=== PATIENT | female | born 1990 | race African-American/Black ===

== ENCOUNTER 2016-09-25 22:19 | Emergency (ER) | payer SELFPAY ==
[~2016-09-25] VITALS: Ht 154.9 cm; Wt 70.5 kg
[2016-09-25 22:23] VITALS: BP 131/69; PULSE 82; RESP 14; TEMP 98.6; O2SAT 97
--- NOTE | 2016-09-26 14:42 | EKG ---
Date Performed: 09/25/2016 Time Performed: 23:58:15 PTAGE: 26 years EKG: Sinus rhythm Non-specific T wave inversions anteriorly, Clinical correlation is recommended PREVIOUS TRACING : 05/20/2015 08.56 Since previous tracing, no significant change noted DOCTOR: Alxe Garner Interpretating Date/Time 09/26/2016 14:40:57
== END 2016-09-26 00:20 | disposition left against medical advice (07) ==
LOC: NED 22:19
DX: R07.9 Chest pain, unspecified (principal); Z53.21 Procedure and treatment not carried out due to patient leaving prior to being seen by health care provider
CPT/HCPCS: 93005; 99281

== ENCOUNTER 2016-09-30 09:54 | Emergency (ER) | payer MEDICAID, OTHER ==
[~2016-09-30] VITALS: Ht 154.9 cm; Wt 70.0 kg
[2016-09-30 09:56] VITALS: BP 117/64; PULSE 76; RESP 12; TEMP 97.8; O2SAT 100
--- NOTE | 2016-09-30 10:13 | PD ---
HPI Chief Complaint: Cold / Flu Symptoms Time Seen by Provider: 10:12 Travel History International Travel<30 days: No Contact w/Intl Traveler<30days: No Traveled to known affect area: No History of Present Illness HPI 26-year-old female presents to the ED for evaluation of 3 day history of nonproductive cough, clear rhinorrhea, body aches and sore throat. Patient denies headaches, fevers, chills, ear pain nausea or vomiting. She endorses rib pain with cough. She endorses sick contacts, states that her 1-year-old has a viral illness. She denies this years flu vaccine. Denies chronic medical problems, takes no daily medications, NKDA. PFSH Past Medical History Cardiovascular Problems: Yes (ENLARGED HEART) Diminished Hearing: No Immunizations Current: Yes ?: Not : 3 Para: 3 Miscarriage: 0 : 0 Social History Alcohol Use: Yes (OCC) Tobacco Use: No Substance Use: No Allergies-Medications (Allergen,Severity, Reaction): Coded Allergies: No Known Allergies (Verified , 09/30/16) Reported Meds & Prescriptions Reported Meds & Active Scripts Active Tessalon Perles (Benzonatate) 100 Mg Cap 100 Mg PO TID PRN Review of Systems Except as stated in HPI: all other systems reviewed are Neg Physical Exam Narrative GENERAL: Well-nourished, well-developed black female in no acute distress. SKIN: Warm and dry. HEAD: Normocephalic. Atraumatic. EYES: No scleral icterus. No injection or drainage. PERRLA. EOMI. ENT: Pearly coughlin tympanic membranes bilaterally. Nasal mucosa is moist. Oropharynx with mild posterior erythema. Right-sided tonsil 2+. No edema or exudate. Uvula midline. Airway patent. NECK: Supple, trachea midline. No JVD or lymphadenopathy. CARDIOVASCULAR: Regular rate and rhythm without murmurs, gallops, or rubs. No carotid bruits. 2+ DP and radial pulses bilaterally. RESPIRATORY: Breath sounds clear and equal bilaterally. No accessory muscle use. No tenderness to palpation of the precordium. GASTROINTESTINAL: Abdomen soft, non-tender, nondistended. + Bowel sounds MUSCULOSKELETAL: No cyanosis, or edema. Patient is ambulatory and moves the extremities spontaneously. BACK: Nontender without obvious deformity. No CVA tenderness. Data Data Last Documented VS Vital Signs Date Time Temp Pulse Resp B/P Pulse Ox O2 Delivery O2 Flow Rate FiO2 09/30/16 09:56 97.8 76 12 117/64 100 Room Air Orders Influenzae A/B Antigen (09/30/16 10:13) Group A Rapid Strep Screen (09/30/16 10:13) Strep Culture (Group A) (09/30/16 10:45) MDM Medical Decision Making Medical Screen Exam Complete: Yes Emergency Medical Condition: Yes Differential Diagnosis Viral syndrome versus pharyngitis versus bronchitis versus strep pharyngitis versus influenza versus other Narrative Course 26-year-old female presents to the ED for evaluation of 3 day history of nonproductive cough, clear rhinorrhea, body aches and sore throat. Patient denies headaches, fevers, chills, ear pain nausea or vomiting. She endorses rib pain with cough. She endorses sick contacts, states that her 1-year-old has a viral illness. She denies this years flu vaccine. Vitals reviewed. Physical exam reveals a nontoxic-appearing black female in no acute distress. Pearly coughlin tympanic membranes bilaterally. Oropharynx with mild posterior erythema. 1+ right tonsil. No exudates. Uvula midline. Airway patent. Chest clear to auscultation bilaterally. No tenderness to palpation of the precordium. Group A strep swab: Negative Influenza AB: Negative Versus viral syndrome. Patient was provided a short course of Tessalon Perles to soothe her cough. She is instructed to continue symptomatic treatment, follow-up with her primary care provider. She indicated understanding of instructions. She is amenable to plan of care. She is stable and discharged home. Diagnosis Primary Impression: Viral syndrome Additional Impression: Cough Referrals: Primary Care Physician Patient Instructions: General Instructions, Viral Syndrome (ED) Additional Instructions: Rest, hydrate. Take Tessalon Perles as directed, as needed for cough. Increase handwashing frequency in order to reduce spread of illness in the community. Follow up with your primary care provider this week Return to the ED for any urgent or emergent medical condition. Med/Other Pt SpecificInfo: Prescription(s) given Scripts Benzonatate (Tessalon Perles)100 Mg [id number] Mg PO TID PRN (COUGH) #10 CAP Ref 0 Prov:Marcela Esquivel DO 09/30/16 Disposition: 01 DISCHARGE HOME Condition: Stable Emilie Gomes Sep 30, 2016 10:12
[2016-09-30] MEDS ORDERED: BENZ100 PO (11:19)
== END 2016-09-30 11:30 | disposition home or self-care (01) ==
LOC: NEPB 09:54
DX: B34.9 Viral infection, unspecified (principal); R05 Cough; J02.9 Acute pharyngitis, unspecified; I51.7 Cardiomegaly
CPT/HCPCS: 87081; 87804; 87880; 99283

== ENCOUNTER 2017-04-05 12:59 | Emergency (ER) | payer MEDICAID, OTHER ==
[~2017-04-05 12:59] MED LIST: BENZ100 PO
--- NOTE | 2017-04-05 13:55 | PD ---
HPI Chief Complaint Leakage of fluid Date Seen: Apr 05, 2017 Time Seen: 13:45 Travel History International Travel<30 Days: No Contact w/Intl Traveler<30Days: No Known Affected Area: No History of Present Illness HPI 36-year-old at 15 weeks gestation presenting for gush of fluid occurring about 20 minutes prior to presentation. She denies any odor to the fluid, denies vaginal bleeding or contractions. Denies chest pain, shortness of breath , fever or chills, dysuria. No recent travel or sexual activity. No abdominal trauma. History Past Medical History Narrative Medical Diagnosed with cardiomyopathy 2008 Past Surgical History Surgical History: No Previous Surgery Family History Family History: Negative Social History Alcohol Use: No Tobacco Use: No Substance Abuse: No Allergies-Medications (Allergen,Severity, Reaction): Coded Allergies: No Known Allergies (Verified , 02/10/17) Home Meds Active Scripts Metronidazole 500 Mg [id number] Mg PO BID #14 TAB Ref 0 Prov:Antelmo Leon MD R1 04/05/17 Benzonatate (Tessalon Perles)100 Mg [id number] Mg PO TID PRN (COUGH) #10 CAP Ref 0 Prov:Marcela Esquivel DO 09/30/16 Review of Systems Except as stated in HPI: all other systems reviewed are Neg Physical Exam Narrative GENERAL: Well-nourished, well-developed patient. SKIN: Warm and dry. HEAD: Normocephalic and atraumatic. EYES: No scleral icterus. No injection or drainage. ENT: No nasal drainage noted. Mucous membranes pink. Airway patent. NECK: Supple, trachea midline. No JVD. CARDIOVASCULAR: Regular rate and rhythm without murmurs, gallops, or rubs. RESPIRATORY: Breath sounds equal bilaterally. No accessory muscle use. ABDOMEN/GI: Abdomen soft, non-tender, bowel sounds present, no rebound, no guarding GENITOURINARY: Speculum exam revealing normal external genitalia, closed cervix with copious amount of thin whitish vaginal discharge with fishy odor. No bleeding. FHT's: 155 EXTREMITIES: No cyanosis or edema. BACK: Nontender without obvious deformity. No CVA tenderness. NEUROLOGICAL: Awake and alert. Motor and sensory grossly within normal limits. Normal speech. Data Data Vital Signs Reviewed: Yes Orders Vital Signs (Adult) .ON ADMISSION (04/05/17 13:52) ^ Labor Status (04/05/17 13:52) ^ Hydration (04/05/17 13:52) Wet Prep Profile (04/05/17 13:52) Pamg-1 Test .ONCE (04/05/17 13:52) MDM Medical Record Reviewed: Yes Narrative Course / MDM 26-year-old at 15/6 weeks gestation presenting with vaginal discharge #1 IUP heart tones reassuring Continue routine care #2 vaginal discharge Unlikely to be rupture of membranes at this stage; given odor, most likely diagnosis is bacterial vaginosis. No evidence of copious/gonorrhea. - Wet prep profile pending - Amni-Sure test pending Diagnosis Diagnosis: Primary Impression: Bacterial vaginosis Disposition: 01 DISCHARGE HOME Condition: Critical Scripts Metronidazole 500 Mg [id number] Mg PO BID #14 TAB Ref 0 Prov:Antelmo Leon MD R1 04/05/17 Antelmo Leon MD R1 Apr 05, 2017 13:55
[2017-04-05] MEDS ORDERED: METR500T10 PO (14:05)
== END 2017-04-05 14:38 | disposition home or self-care (01) ==
LOC: HOBED 12:59
DX: O23.592 Infection of other part of genital tract in pregnancy, second trimester (principal); Z3A.15 15 weeks gestation of pregnancy
CPT/HCPCS: 84112; 87210; 99283

== ENCOUNTER → 2017-05-28 | Outpatient (CLI) | payer MEDICAID ==
[~2017-05-28] MED LIST changes: +METR500T10 PO
== END ==
LOC: HPND 08:09
PROVIDERS: ATTEND Obstetrics & Gynecology
DX: O26.872 Cervical shortening, second trimester (principal); O35.1XX0 Maternal care for (suspected) chromosomal abnormality in fetus, not applicable or unspecified; O09.212 Supervision of pregnancy with history of pre-term labor, second trimester
CPT/HCPCS: 76805; 76817